=== PATIENT | female | born 1975 ===

== ENCOUNTER 2024-07-12 02:12 | Outpatient (CLI) | payer BC, SELFPAY ==
--- NOTE | 2024-07-12 | DI.MAMMO_ITS ---
Exam(s) MAMMO SCREENING EXAM: MAMMO SCREENING CLINICAL HISTORY: ENCOUNTER FOR GEN MED EXAM,Z00.00,SCREENING TECHNIQUE: Mammograms were interpreted according to the usual protocol including computer analysis w [employer] CAD system, tomosynthesis and C-view imaging. COMPARISON: 2022 FINDINGS: The breasts are composed of heterogeneously dense fibroglandular densities, Breast Density category C . Left breast: Previously noted circumscribed nodule in the quadrant longer seen. There is no area nod ularity in the medial left breast. An are also calcifications seen in the upper inner quadrant. Spo t magnification views and ultrasound are requested further evaluation. No skin thickening or abnormal axillary lymph nodes are seen. Right breast: Decreased prominence of area of nodularity seen in posterior upper outer quadrant. Dec reased prominence of area of nodularity in the upper inner quadrant in the anterior tissue. Multiple other areas of nodularity throughout the breast. Ultrasound is recommended for further evaluation. No skin thickening or abnormal axillary lymph nodes are seen. IMPRESSION: BI-RADS Category 0 - Incomplete: Need additional imaging evaluation with spot magnification view of the left breast and bilateral breast ultrasound. Additional imaging recommended to include ultrasound or additional mammographic imaging as indicated. Breast Density Category C, heterogeneously Dense. Breast density Category C or D implies that the patient has dense breast tissue. Dense breast tissue can make it harder to find cancer on a mammogram. Dense breast tissue is also associated with an incr eased risk of breast cancer. This information about the result of the mammogram report was provided to the patient to raise their awareness. Use this report when you speak with the patient about their risks for breast cancer, which includes their family history. At that time, you may recommend additional screening tests (Ultrasoun d or MRI) as these tests may add significant information. A negative radiographic report should not delay biopsy if a dominant or clinically suspicious mass is present. Up to ten percent of cancers are not identified on mammography. A negative report may reinforce clinical impression. Adenosis and dense breasts may obscure an underlying neoplasm. False positive reports average 6 to 10%.
== END 2024-07-12 02:32 ==
PROVIDERS: PCP Nurse Practitioner Family; Visit Provider Nurse Practitioner Family
DX: Z12.31 Encounter for screening mammogram for malignant neoplasm of breast (principal); R92.8 Other abnormal and inconclusive findings on diagnostic imaging of breast
CPT/HCPCS: 77063; 77067

== ENCOUNTER 2024-07-20 02:47 | Outpatient (CLI) | payer BC, SELFPAY ==
--- NOTE | 2024-07-20 | DI.US_ITS ---
Exam(s) MG MAMMO SCREEN CALL BACK UNI US BREAST LT COMPLETE US BREAST RT COMPLETE EXAM: MG MAMMO SCREEN CALL BACK UNI LEFT AND COMPLETE BILATERAL BREAST ULTRASOUND CLINICAL HISTORY: F/U ABNL MAMMO, LT BREAST NODULARITY, CALCIFICATIONS UIQ LT BREAST. TECHNIQUE: Unilateral LEFT BREAST spot MAGNIFICATION mammographic images obtained with 3D tomosynthe sisand utilizing computer aided detection (CAD). . Complete BILATERAL breast Ultrasound was also performed, including all 4 quadrants, the retroareolar region, and the ipsilateral axilla. COMPARISON: Prior mammograms were reviewed. This additional imaging was performed due to findings described on the recent screening mammogram of 07/13/2024. FINDINGS: DIAGNOSTIC MAMMOGRAM: Additional spot Mag mammographic views performed todaythe left breast reveal the microcalcifications to be presently benign appearance but these 2 microcalcification groups require repeat Mag views in 6 months. COMPLETE BILATERAL BREAST ULTRASOUND: Left breast ultrasound: There are multiple microcysts, the largest being at the 9 o'clock position and corresponding to the n odule on the mammogram. This measures 10 x 5 mm. In addition to multiple other smaller microcysts there also 2 ultrasound findings in left breast whi ch require follow-up ultrasound in 6 months. At the 12 o'clock position there is a 1.5 by 0.5 cm wid er than taller fibrocystic appearing nodule which is probably a conglomeration of microcysts. A neha lar but slightly smaller finding is seen at the 10 o'clock position which measures 1.3 by 0.3 cm. Scanning of the left axilla is negative for adenopathy. Right breast ultrasound: There are multiple microcysts. At the 3 o'clock position there is a conglomeration microcysts measuring 8 x 4 mm. Another is seen a t the 9 o'clock position measuring 11 by 4 mm. There is also a nodule at the 10 o'clock position teja suring 9 x 7 mm which has appearance of a hemorrhagic cyst. Scanning of the ipsilateral axilla reveals no significant adenopathy. IMPRESSION: 1. There are 2 microcalcification groups in the left breast which are presently benign appearance bu t which require repeat follow-up spot Mag 2D views in 6 months 2. Ultrasound reveals multiple bilateral benign microcysts as well as bilateral conglomerations of m icrocysts. These are at the 12 o'clock and 10 o'clock positions of the left breast and at the 3 and 9 o'clock positions of the right breast. Also 10 o'clock position of the right breast. Appropriate follow-up is repeat imaging in 6 months to include repeat left breast mammogram with spot Mag views of 2 microcalcification groups. At that time repeat bilateral complete breast ultrasound should be performed The patient was informed of these findings and recommendations by myself prior to leaving the departm ent today. BI-RADS Category 3 - 6 month - Probably Benign Finding: Recommend follow-up mammography in 6 months Breast Density - Category C - The breast are heterogeneously dense, which may obscure small masses. Breast density Category C or D implies that the patient has dense breast tissue. Dense breast tissue can make it harder to find cancer on a mammogram. Dense breast tissue is also associated with an incr eased risk of breast cancer. This information about the result of the mammogram report was provided to the patient to raise their awareness. Use this report when you speak with the patient about their risks for breast cancer, which includes their family history. At that time, you may recommend additional screening tests (Ultrasoun d or MRI) as these tests may add significant information. A negative radiographic report should not delay biopsy if a dominant or clinically suspicious mass is present. Up to ten percent of cancers are not identified on mammography. A negative report may reinforce clinical impression. Adenosis and dense breasts may obscure an underlying neoplasm. False positive reports average 6 to 10%. Patient will receive a letter notifying them of these results.
== END 2024-07-20 03:07 ==
LOC: DI 02:47
PROVIDERS: Visit Provider Nurse Practitioner Family
DX: Z12.31 Encounter for screening mammogram for malignant neoplasm of breast (principal); R92.8 Other abnormal and inconclusive findings on diagnostic imaging of breast; R92.333 Mammographic heterogeneous density, bilateral breasts
CPT/HCPCS: 76642; 77063; 77067